=== PATIENT | male | born 1990 | race African-American/Black ===

== ENCOUNTER 2021-05-29 20:35 | Emergency (ER) | payer OTHER ==
[~2021-05-29] VITALS: Ht 188 cm; Wt 97.7 kg
[2021-05-29 23:24] VITALS: BP 147/87
[2021-05-30] MEDS ORDERED: KETOROLAC TROMETHAMINE 30 MG/ML VIAL IM ONE
== END 2021-05-30 01:47 | disposition home or self-care (01) ==
LOC: EMS 20:38
DX: N49.2 Inflammatory disorders of scrotum (principal); F17.200 Nicotine dependence, unspecified, uncomplicated; F12.90 Cannabis use, unspecified, uncomplicated
CPT/HCPCS: 76870; 96372; 99284; J1885

== ENCOUNTER 2024-01-13 15:37 | Emergency (ER) | payer OTHER ==
[~2024-01-13] VITALS: Ht 188 cm; Wt 90.0 kg
[2024-01-13 16:02] VITALS: BP 132/75; PULSE 77; RESP 20; TEMP 98.1
[2024-01-13] MEDS: DOXYCYCLINE HYCLATE 100 MG TABLET PO ONE (20:05)
[2024-01-13] MEDS: CEPHALEXIN MONOHYDRATE 500 MG CAPSULE PO ONE (20:06)
[2024-01-13] MEDS: ONDANSETRON HCL 4 MG/2 ML VIAL IM ONE (20:06)
[2024-01-13] MEDS: HYDROmorphone HCL 2 MG/ML SYRINGE IM ONE (20:08)
[2024-01-13] MEDS: LIDOCAINE 1% 10 ML VIAL SQ ONE (20:09)
[2024-01-13] MEDS ORDERED: HYDR-4062 PO (21:07)
[2024-01-13] MEDS ORDERED: CEPH-558 PO (21:07)
[2024-01-13] MEDS ORDERED: DOXY-354 PO (21:07)
[2024-01-13] MEDS ORDERED: IBUP-1554 PO (21:11)
== END 2024-01-13 21:38 | disposition home or self-care (01) ==
LOC: EMS 15:37
DX: L02.213 Cutaneous abscess of chest wall (principal); L73.2 Hidradenitis suppurativa; F12.90 Cannabis use, unspecified, uncomplicated
CPT/HCPCS: 99284; 10060; 96372; J1170; J2405; J3490

== ENCOUNTER 2024-01-25 10:42 | Emergency (ER) | payer OTHER ==
[~2024-01-25] VITALS: Ht 185.4 cm; Wt 95.5 kg
[~2024-01-25 10:42] MED LIST: CEPH-558 PO; DOXY-354 PO; HYDR-4062 PO; IBUP-1554 PO
[2024-01-25 11:12] VITALS: BP 105/77; PULSE 90; RESP 18; TEMP 97.8
== END 2024-01-25 14:27 | disposition left against medical advice (07) ==
LOC: EMS 10:42
DX: Z53.21 Procedure and treatment not carried out due to patient leaving prior to being seen by health care provider (principal)